=== PATIENT | male | born 1935 | race Caucasian/White ===

== ENCOUNTER 2022-09-15 03:21 | Emergency (ER) | payer MEDICARE ==
[2022-09-15] MEDS ORDERED: LIDOCAINE 1% INJ 10MG/ML (30 ML VIAL-PF) SQ ONE (03:32)
--- NOTE | 2022-09-15 03:48 | ED ---
General Adult HPI <Yolanda Schmidt - Last Filed: 09/15/22 03:48> - General Source: patient, family Mode of arrival: wheelchair Limitations: no limitations <Aguilar Pacheco - Last Filed: 09/15/22 04:50> - General Chief complaint: Wound/Laceration Stated complaint: Fall, Head Injury Time Seen by Provider: 09/15/22 03:42 - History of Present Illness Initial comments: Patient is an 87-year-old male with past medical history remarkable for cerebellar ataxia who presents emergency Department complaining of losing his balance and falling into a cabinet earlier this evening. Happened just prior to arrival. Is not on blood thinners. No loss of consciousness. He ambulates with a cane at baseline. Feeling well except for laceration of the head and pain. Denies any other injuries at this time. Presents for further evaluation at this time. (Aguilar Pacheco) - Related Data Allergies Allergy/AdvReac Type Severity Reaction Status Date / Time No Known Allergies Allergy Verified 09/15/22 03:32 Review of Systems ROS Other: All systems not noted in ROS Statement are negative. <Yolanda Schmidt - Last Filed: 09/15/22 03:48> ROS Other: All systems not noted in ROS Statement are negative. <Aguilar Pacheco - Last Filed: 09/15/22 04:50> ROS Statement: Those systems with pertinent positive or pertinent negative responses have been documented in the HPI. Review of Systems: CONST: Denies fever EYES: Denies blurry vision ENT: Denies nasal congestion C/V: Denies Chest pain RESP: Denies shortness of breath GI: Denies abdominal pain : Denies dysuria SKIN: Denies rash. MSK: Endorses head laceration NEURO: Denies headache (Aguilar Pacheco) Past Medical History Past Medical History: Hyperlipidemia, Hypertension History of Any Multi-Drug Resistant Organisms: None Reported Past Surgical History: Cholecystectomy Past Psychological History: No Psychological Hx Reported Smoking Status: Never smoker Past Alcohol Use History: None Reported Past Drug Use History: None Reported <Aguilar Pacheco - Last Filed: 09/15/22 04:50> General Exam Limitations: no limitations <Aguilar Pacheco - Last Filed: 09/15/22 04:50> - General Exam Comments Initial Comments: General: Appears in no acute distress. HEAD: Has a left parietal scalp laceration EYES: PERRLA, EOMI, conjunctiva normal, no discharge. Pupils are 3 mm and equal bilaterally. ENT: Hearing grossly intact, normal oropharynx. RESPIRATORY: Clear breath sounds bilaterally. No wheezes, rales, or rhonchi. C/V: Regular rate and rhythm. S1 and S2 auscultated. Peripheral pulses 2+ intact throughout. ABD: Abd is soft, nontender, nondistended EXT: Normal range of motion, no obvious deformity. No midline cervical or spinal tenderness to palpation. SKIN: Skin laceration noted over the left parietal scalp. Will require closure. NEURO: Alert and oriented x 4. Cranial nerves II-XII intact. No focal sensory or strength deficits. GCS of 15. (Aguilar Pacheco) Course Vital Signs 09/15/22 03:28 Temperature 98.2 F Pulse Rate 66 Respiratory 18 Rate Blood Pressure 167/92 O2 Sat by Pulse 98 Oximetry Procedures - Laceration Laceration #1 Site: scalp (left hairline) Size (cm): 4 Description: linear Depth: simple, single layer Anesthetic Used: lidocaine 1% Anesthesia Technique: local infiltration Pre-repair: wound explored, irrigated extensively Type of Sutures: other (ruthy) Number of Sutures: 6 Patient Tolerated Procedure: well, no complications <Yolanda Schmidt - Last Filed: 09/15/22 03:48> Medical Decision Making <Aguilar Pacheco - Last Filed: 09/15/22 04:50> - Medical Decision Making Was pt. sent in by a medical professional or institution (, PA, IRON CASTER, urgent care, hospital, or assisted...) When possible be specific @ -No Did you speak to anyone other than the patient for history (EMS, parent, family, police, friend...)? What history was obtained from this source @ -No Did you review nursing and triage notes (agree or disagree)? Why? @ -I reviewed and agree with nursing and triage notes Were old charts reviewed (outside hosp., previous admission, EMS record, old EKG, old radiological studies, urgent care reports/EKG's, assisted records)? Report findings @ -No old charts were reviewed Differential Diagnosis (chest pain, altered mental status, abdominal pain women, abdominal pain men, vaginal bleeding, weakness, fever, dyspnea, syncope, headache, dizziness, GI bleed, back pain, seizure, CVA, palpatations, mental health, musculoskeletal)? @ -Intracranial injury, scalp laceration, fall. This list is not all inclusive. EKG interpreted by me (3pts min.). @ -None done X-rays interpreted by me (1pt min.). @ -None done CT interpreted by me (1pt min.). @ -CT brain reveals no obvious acute intracranial process. U/S interpreted by me (1pt. min.). @ -None done What testing was considered but not performed or refused? (CT, X-rays, U/S, labs)? Why? @ -None What meds were considered but not given or refused? Why? @ -None Did you discuss the management of the patient with other professionals (professionals i.e. , PA, IRON CASTER, lab, RT, psych nurse, healthcare social worker, valve maker, teacher, juvenile probation officer, child support case officer)? Give summary @ -No Was smoking cessation discussed for >3mins.? @ -No Was critical care preformed (if so, how long)? @ -No Were there social determinants of health that impacted care today? How? (Homelessness, low income, unemployed, alcoholism, drug addiction, transportation, low edu. Level, literacy, decrease access to med. care, intermediate, rehab)? @ -No Was there de-escalation of care discussed even if they declined (Discuss DNR or withdrawal of care, Hospice)? DNR status @ -No What co-morbidities impacted this encounter? (DM, HTN, Smoking, COPD, CAD, Cancer, CVA, ARF, Chemo, Hep., AIDS, mental health diagnosis, sleep apnea, morbid obesity)? @ -None Was patient admitted / discharged? Hospital course, mention meds given and route, prescriptions, significant lab abnormalities, going to OR and other pertinent info. @ -Patient presents after mechanical fall not on blood thinners suffering a head wound that will require ruthy. Due to his age as well as the fall we will obtain CT brain. Patient was in agreement this plan. Declines analgesia medications at this time. Up-to-date on tetanus. Laceration will be closed by assisting mid-level provider Yolanda. See procedure note for further details. Patient was in agreement with this plan. Vital signs within acceptable limits. CT imaging unremarkable. No obvious acute intracranial injury. I updated the patient. Remains asymptomatic at this time. Was in agreement with discharge home. Strict return precautions discussed. Recommended staple removal in 5-7 days. I instructed the patient to follow up with their PCP in the next 1-3 days. I explained that the patient should return to the emergency department if they experience any worsening symptoms. Strict return precautions were discussed with the patient. The patient expressed understanding of these instructions. I answered all questions that the patient had. The patient was discharged home in good condition with their prescriptions and follow up information. Undiagnosed new problem with uncertain prognosis? @ -No Drug Therapy requiring intensive monitoring for toxicity (Heparin, Nitro, Insulin, Cardizem)? @ -No Were any procedures done? @ -No Diagnosis/symptom? @ -Fall, scalp laceration requiring ruthy Acute, or Chronic, or Acute on Chronic? @ -Acute Uncomplicated (without systemic symptoms) or Complicated (systemic symptoms)? @ -Uncomplicated Side effects of treatment? @ -No Exacerbation, Progression, or Severe Exacerbation? @ -No Poses a threat to life or bodily function? How? (Chest pain, [place], NM, pneumonia, PE, COPD, DKA, ARF, appy, cholecystitis, CVA, Diverticulitis, Homicidal, Suicidal, threat to staff... and all critical care pts) @ -No (Aguilar Pacheco) Disposition <Yolanda Schmidt - Last Filed: 09/15/22 03:48> Is patient prescribed a controlled substance at d/c from ED?: No Time of Disposition: 04:45 <Aguilar Pacheco - Last Filed: 09/15/22 04:50> Clinical Impression: Laceration, Fall, Stapled skin wound Disposition: HOME SELF-CARE Condition: Good Instructions (If sedation given, give patient instructions): Laceration (ED), Fall Prevention for Older Adults (ED), Staple Care (ED) Referrals: Nonstaff,Physician [Primary Care Provider] - 1-2 days
--- NOTE | 2022-09-15 04:39 | CT ---
EXAM: CT Head Without Intravenous Contrast CLINICAL HISTORY: ITS.REASON CT Reason: head trauma, minor, normal mental status TECHNIQUE: Axial computed tomography images of the head/brain without intravenous contrast. CTDI is 49.1 mGy and DLP is 1276.4 mGy-cm. This CT exam was performed using one or more of the following dose reduction techniques: automated exposure control, adjustment of the mA and/or kV according to patient size, and/or use of iterative reconstruction technique. COMPARISON: No relevant prior studies available. FINDINGS: Brain: Unremarkable. No hemorrhage. No significant white matter disease. No edema. Ventricles: Unremarkable. No ventriculomegaly. 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 No acute fracture. Periapical lucencies about tooth #14 concern for periapical abscesses or pulpitis. Recommend dental consult. Soft tissues: Bilateral lens replacements. Mild soft tissue swelling about the left scalp with surgical ruthy in place. Sinuses: Unremarkable as visualized. No acute sinusitis. Mastoid air cells: Unremarkable as visualized. No mastoid effusion. IMPRESSION: No evidence of acute intracranial pathology.
[2022-09-15 05:00] VITALS: BP 142/77; PULSE 67; RESP 16; TEMP 98.4
== END 2022-09-15 05:00 | disposition home or self-care (01) ==
LOC: EC 03:21
DX: S01.01XA Laceration without foreign body of scalp, initial encounter (principal); I10 Essential (primary) hypertension; Z90.49 Acquired absence of other specified parts of digestive tract; W01.0XXA Fall on same level from slipping, tripping and stumbling without subsequent striking against object, initial encounter
CPT/HCPCS: 70450; 99283; 12002; J2001